=== PATIENT | male | born 1970 | race Caucasian/White ===

== ENCOUNTER 2018-12-09 17:31 | Emergency (ER) | payer SELFPAY ==
[~2018-12-09] VITALS: Ht 175.3 cm; Wt 135.0 kg
[2018-12-09 17:45] VITALS: BP 140/95
== END 2018-12-09 19:36 | disposition home or self-care (01) ==
LOC: ED 19:30
DX: L03.116 Cellulitis of left lower limb (principal)
CPT/HCPCS: 99283

== ENCOUNTER 2019-05-06 08:43 | Emergency (ER) | payer MEDICAID ==
[~2019-05-06] VITALS: Ht 175.3 cm; Wt 141.0 kg
[2019-05-06 12:40] VITALS: BP 90/55
== END 2019-05-06 14:14 | disposition home or self-care (01) ==
LOC: ED 10:21
DX: A04.9 Bacterial intestinal infection, unspecified (principal); R19.7 Diarrhea, unspecified; I10 Essential (primary) hypertension
CPT/HCPCS: 36415; 74177; 80053; 81001; 85025; 87324; 89055; 96361; 96374; 99284; J2405; J7030; Q9967

== ENCOUNTER 2020-07-02 13:11 | Emergency (ER) | payer MEDICAID ==
[~2020-07-02] VITALS: Ht 175.3 cm; Wt 154.8 kg
--- NOTE | 2020-07-02 14:30 | NUR ---
US AT BEDSIDE
[2020-07-02 14:47] LABS: BASOPHILS % (AUTO) 1 % (0-1); EOSINOPHILS % (AUTO) 1 % (1-7); LYMPHOCYTES % (AUTO) 28 % (22-44); MEAN CORPUSCULAR HEMOGLOBIN 28.9 pg (27.5-34.5); MEAN CORPUSCULAR HGB CONC 33.1 g/dL (33.2-36.2); MONOCYTES % (AUTO) 13 % (2-9); NEUTROPHILS % (AUTO) 57 % (42-75); PLATELET COUNT 326 x10^3/uL (130-400); RED BLOOD COUNT 5.54 x10^6/uL (4.38-5.82); RED CELL DISTRIBUTION WIDTH 13.5 % (9.4-14.8)
[2020-07-02 14:50] LABS: MD NO
[2020-07-02 14:58] LABS: ALBUMIN 3.6 g/dL (3.4-5.0); ANION GAP 5 mmol/L (5-15); CALCIUM 9.2 mg/dL (8.5-10.1); CHLORIDE 107 mmol/L (98-107)
[2020-07-02 15:00] VITALS: BP 135/79
[2020-07-02] MEDS ORDERED: CEFTRIAXONE 1,000 MG IM ONE (15:00)
[2020-07-02 15:02] LABS: ALANINE AMINOTRANSFERASE 43 U/L (12-78); ALKALINE PHOSPHATASE 68 U/L (45-117); BILIRUBIN,TOTAL 0.4 mg/dL (0.2-1.0); CREATININE 1.01 mg/dL (0.7-1.3); TOTAL PROTEIN 7.9 g/dL (6.4-8.2)
[2020-07-02] MEDS ORDERED: CEFTRIAXONE 1,000 MG ONE (15:15)
--- NOTE | 2020-07-02 15:56 | NUR ---
Patient given discharge instructions and Rx, they have confirmed that they understand the instructions. Patient ambulatory with steady gait.
== END 2020-07-02 16:03 | disposition home or self-care (01) ==
LOC: ED 14:14
DX: L03.116 Cellulitis of left lower limb (principal); M79.89 Other specified soft tissue disorders; I10 Essential (primary) hypertension
CPT/HCPCS: 36415; 80053; 85025; 93971; 96372; 99284; J0696